=== PATIENT | male | born 1940 | race Caucasian/White ===

== ENCOUNTER 2016-08-31 12:24 | Inpatient (IN) | payer MEDICARE ==
[2016-08-31] MEDS ORDERED: SODIUM CHLORIDE 0.9% 1000ML 1,000 ML IVS PRN (12:43)
--- NOTE | 2016-08-31 13:32 | RAD ---
Study: Single Frontal View of the Chest. Indication:syncope, hypotension Comparison: None Impression: Heart size upper limits normal without failure. Atherosclerosis aorta. Patchy consolidation right midlung and right lung base concerning for pneumonia. Followup to resolution recommended. No pleural effusion pneumothorax. Osteopenia. If this is a new finding, DEXA scan recommended as well as evaluation for possible osteoporosis treatment. Electronically signed by: Beni Montaño MD 08/31/2016 13:30
[2016-08-31] MEDS: SODIUM CHLORIDE 0.9% (FLUSH) 10 ML SYG IV PRN (13:43)
[2016-08-31] MEDS ORDERED: CEFEPIME 2 GM in SODIUM CHL 0.9% 50ML MIN-BAG+ 50 ML IVPB ONE (13:43)
[2016-08-31] MEDS ORDERED: AZITHROMYCIN IV 500 MG in SODIUM CHLORIDE 0.9% 250ML 250 ML IVPB ONE (13:44)
[2016-08-31] MEDS ORDERED: VANCOMYCIN HCL INJ 1,000 MG, VANCOMYCIN HCL INJ 500 MG in SODIUM CHLORIDE 0.9% 250ML 25... IVPB ONE (13:44)
--- NOTE | 2016-08-31 14:03 | ED.PDOC ---
History of Present Illness - General Chief Complaint: Syncope/Near Syncope Stated Complaint: possible syncopal episode Time Seen by Provider: 08/31/16 12:35 Source: family, RN/MD, long term records Exam Limitations: clinical condition Additional Information: HPI AND ROS IS LIMITED DUE TO PTS MENTAL STATUS - History of Present Illness Initial Comments: PT SENT TO ED FROM [facility] DUE TO SYNCOPAL EPISODE. PT IS NORMALLY CONFUSED AND UNABLE TO AMBULATE DUE TO STROKE. 2 FAMILY MEMBERS AT BEDSIDE WHO STATE THAT PT HAS HAD A HOARSE VOICE AND COUGH RECENTLY AND HAS ALSO BEEN RUNNING ELEVATED BLOOD SUGARS. Timing/Prior Episodes: single episode today Precipitating Factors: unknown Loss of Consciousness: unsure Current Symptoms: back to normal Allergies/Adverse Reactions: Allergies NO KNOWN ALLERGY Allergy (Verified 02/17/16 04:14) Home Medications: Ambulatory Orders Aspirin [Aspirin Childrens] 81 mg PO DAILY 07/14/15 Lovastatin 40 mg PO BEDTIME 07/14/15 Metformin HCl 1,000 mg PO BIDFD 07/14/15 Ramipril 5 mg PO DAILY 07/14/15 Clopidogrel Bisulfate [Plavix] 75 mg PO DAILY 03/09/16 Insulin Lispro [Humalog] 0 unit SC TID PRN 03/09/16 Cefuroxime Axetil [Ceftin] 250 mg PO BID #12 tab 03/11/16 Review of Systems - Review of Systems Constitutional: Denies: chills, fever EENTM: Denies: nose congestion, throat pain Respiratory: States: see HPI, cough. Denies: short of breath Cardiology: States: no symptoms reported Gastrointestinal/Abdominal: States: no symptoms reported Genitourinary: States: no symptoms reported Musculoskeletal: States: no symptoms reported Skin: States: no symptoms reported Neurological: States: no symptoms reported Endocrine: States: no symptoms reported Hematologic/Lymphatic: States: no symptoms reported Past Medical History (General) - Patient Medical History Hx Seizures: No Hx Stroke: Yes - january Hx Cardiac Disorders: Yes Hx Congestive Heart Failure: No Hx Pacemaker: No Hx Hypertension: Yes Hx Diabetes: Yes Hx MRSA: No - Vaccination History Hx Influenza Vaccination: Yes - Social History Hx Tobacco Use: Yes Hx Alcohol Use: No Hx Substance Use: No Hx Substance Use Treatment: No Hx Depression: Yes Hx Physical Abuse: No Hx Emotional Abuse: No - Female History Patient : No Physical Exam - Physical Exam General Appearance: Comfortable, Frail, No apparent distress Eyes, Ears, Nose, Throat Exam: other - DRY MUCOUS MEMBRANES Neck: normal inspection Cardiovascular/Respiratory: regular rate, rhythm, no M/R/G, normal breath sounds , no respiratory distress - 94% ON RA, tachycardia Gastrointestinal/Abdominal: non tender, soft Extremity: normal inspection Mental Status: alert, other - CONFUSED, UNINTELIGIBLE SPEECH Motor/Sensory: weak motor strength RUE, weak motor strength RLE Skin Exam: normal color, warm/dry Progress - Progress Progress: 08/31/16 14:08 PT RESTING COMFORTABLY IN BED ON RE-EVAL. BP IMPROVED TO 130 SYSTOLIC AFTER INITIATION OF IV NS. LABS AND DIAGNOSTIC STUDIES DISCUSSED WITH FAMILY AT BEDSIDE. WILL REFER TO HOSPITALIST FOR ADMISSION. ANTIBIOTICS INITIATED FOR HEALTHCARE ASSOCIATED PNEUMONIA. - EKG/XRAY/CT EKG: Sinus, Tachy - @ 130BPM, NL INTERVALS, NL AXIS, NO OLD EKG FOR COMPARISON XRAY: chest Xray Comments: RML, RLL, INFILTRATE PER RAD CT Ordered: No Departure - Departure Clinical Impression: Hyperglycemia Pneumonia Qualifiers: Pneumonia type: due to unspecified organism Laterality: right Lung location: unspecified part of lung Qualifier Code: (J18.9) Pneumonia, unspecified organism Syncope Qualifiers: Syncope type: unspecified Qualifier Code: (R55) Syncope and collapse Hypotension Qualifiers: Hypotension type: unspecified hypotension type Qualifier Code: (I95.9) Hypotension, unspecified Time of Disposition: 14:13 - DISCUSSED CASE WITH DR. CASH WHO AGREES TO ADMIT Disposition: Discharge to Home or Self Care Condition: Fair Departure Forms: ED Discharge - Pt. Copy, Patient Portal Self Enrollment Home Medications: Ambulatory Orders Aspirin [Aspirin Childrens] 81 mg PO DAILY 07/14/15 Lovastatin 40 mg PO BEDTIME 07/14/15 Metformin HCl 1,000 mg PO BIDFD 07/14/15 Ramipril 5 mg PO DAILY 07/14/15 Clopidogrel Bisulfate [Plavix] 75 mg PO DAILY 03/09/16 Insulin Lispro [Humalog] 0 unit SC TID PRN 03/09/16 Cefuroxime Axetil [Ceftin] 250 mg PO BID #12 tab 03/11/16 Decision To Admit - Decistion To Admit Decision to Admit Reason: Admit from ER - HEALTHCARE ASSOCIATED PNEUMONIA, SYNCOPE, HYPOTENSION, HYPERGLYCEMIA Decision to Admit Date: 08/31/16 Decision to Admit Time: 14:18
--- NOTE | 2016-08-31 14:27 | HP ---
HISTORY OF PRESENT ILLNESS: This 76 year-old white male is admitted to the hospital via the Emergency Room because of being poorly responsive at [facility] where he is currently a resident. He has had significant disability over the last 5 months after an [place] episode with an acute left sided hemispheric ischemic stroke with worsening neurologic disabilities especially involving the right side as well as speech centers. He was last in our hospital in February of this past year. Since then he has been cared for at [facility]. Earlier today, he was found to be poorly responsive and nearly blacking out. In the Emergency Room, he had a blood pressure with systolic in the 90s and after fluid hydration was up to 130 and the patient appeared to be a little more alert. He has had a cough and his voice has been somewhat hoarse, and he is unable to carry out sentences. He speaks with profanities a lot and is able to answer most questions with a "Yes." At the [facility] he has had an elevated glucose as well. No complete loss of consciousness but the patient is probably suffering from a significant shock state and so is admitted to the hospital after being found to have right middle and right lower lobe infiltrates suggesting a pneumonia in his lungs. Pulse oximetry was decreased to 88% on room air at the [facility]. Sacral and heel ulcers also noted. Please refer to orders. PAST MEDICAL HISTORY: 1. Significant cerebrovascular accident episode in February of this past year with neurological evaluation and complete occlusion of his left carotid artery making intervention difficult. 2. History of hypertension. 3. Diabetes. 4. Two heart attacks. 5. Elevated cholesterol. PAST SURGICAL HISTORY: 1. Low back surgery. CURRENT MEDICATIONS: Please refer to nurses notes for a list of verified medications taken at the [facility]. ALLERGIES: NONE KNOWN. FAMILY HISTORY: Mother had lung cancer and diabetes. Father with laryngeal cancer and other family members with diabetes. SOCIAL HISTORY: He has been a chronic smoker for over 60 year at a pack or more per day and quit at the stroke in January and February of 2016. He is retired as an employee from the [employer]. REVIEW OF SYSTEMS: Essentially difficult to obtain because of the patient's inability to communicate. PHYSICAL EXAMINATION: VITAL SIGNS: Afebrile, pulse 67, blood pressure initially 91/60 up to 136/66 after a few hundred milliliters of normal saline infused. Pulse oximetry at the [facility] was 88%, it was 92% on room air in the Emergency Room. Weight 59 kilos. GENERAL: The patient is able to look around and is able to respond to questions , though unfortunately unable to fully answer in a coherent way with most of his answers being yes. Family was not present at the time of the initial admission and will be very helpful when they arrive in the morning to assist with ongoing history determination. HEENT: Question of a right hemianopsia after his recent stroke. NECK: Decreased pulse left carotid. CHEST: Lung sounds seem to be diminished with an occasional rhonchi, especially in the bases bilaterally more prominent on the right than the left. CARDIOVASCULAR: Heart tones somewhat distant. ABDOMEN: Generally soft with a prominent epigastric abdominal aortic bruit being noted. EXTREMITIES: Unable to lift either arm and unable to cooperate with full neurological evaluation suggesting significant disability at this time. The patient has not been able to ambulate and will have therapy evaluation to check on his rehab potential while here. LABORATORY: Potassium 3.9, CO2 is 26, BUN 38, creatinine 1.18, glucose 289, calcium 8.2. Liver enzymes normal. Albumin 2.3. White count 8,400 with 82% neutrophils, hemoglobin 9.1. INR pending. Urinalysis shows glycosuria, hematuria and rare bacteria. Serum ketones negative. Blood cultures pending. Chest x-ray is performed and shows patchy consolidation right mid and right lung base suggesting an inflammatory pneumonia process. Significant osteopenia noted. ASSESSMENT: 1. Significant fdc acquired pneumonia involving right middle and right lower lobes. 2. Hypotension requiring fluid resuscitation. 3. Near syncope probably secondary to the shock state showing some improvement. 4. History of diabetes mellitus on oral therapy. 5. History of significant cerebrovascular accident with disability in February 2016. 6. 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 7. Significant dehydration with fluid supplementation initiated. 8. Hypoxia with saturation 88% room air at the [facility]. 9. Chronic sacral and heel ulcers decubitus in nature with culture pending of the sacral ulcer. 10. Chronic anemia with microcytic hypochromic presentation. PLAN: Will continue with supportive care with gentle fluid hydration overnight. Will continue with antibiotic coverage with Cefepime to allow coverage as a fourth generation cephalosporin plus Azithromycin to also cover Pseudomonas. If the patient's condition fails to improve, then consider the addition of vancomycin, etc. The possibility of aspiration also to be considered where Clindamycin may be indicated with observation to continue. Will observe closely with sliding scale insulin as needed. Use thickened fluid with his diabetic diet. Acquire sputum culture. Condition is serious. Will inquire as to code status. Close followup is necessary and return to [facility] when stable. #[id number] MTDD
[2016-08-31] MEDS ORDERED: VANCOMYCIN HCL INJ 1,000 MG VIAL IVPB ONE ×2 (14:31→18:14)
[2016-08-31] MEDS ORDERED: VANCOMYCIN HCL INJ 500 MG VIAL ONE (14:31)
[2016-08-31] MEDS ORDERED: SODIUM CHLORIDE 0.9% 250ML 0 ML ONE (14:32)
[2016-08-31] MEDS ORDERED: SODIUM CHLORIDE 0.9% 250ML 250 ML ONE ×2 (14:32→18:13)
[2016-08-31] MEDS ORDERED: AZITHROMYCIN IV 500 MG VIAL IVPB ONE (14:32)
[2016-08-31] MEDS ORDERED: CEFEPIME 2 GM VIAL IVPB ONE ×2 (14:35→20:23)
[2016-08-31] MEDS ORDERED: SODIUM CHL 0.9% 50ML MIN-BAG+ 50 ML IVPB ONE ×2 (14:35→20:22)
[2016-08-31] MEDS ORDERED: SODIUM CHLORIDE 0.9% 10 ML VIAL INJ PRN (15:36)
[2016-08-31] MEDS ORDERED: VANCOMYCIN HCL INJ 1,000 MG in SODIUM CHLORIDE 0.9% 250ML 250 ML IVPB SCH (18:00)
[2016-08-31] MEDS ORDERED: SODIUM CHLORIDE 0.9% (FLUSH) 10 ML SYG IV PRN (19:04)
[2016-08-31] MEDS ORDERED: DEXTROSE 50% 25 GM/50 ML SYG IV PRN (19:13)
[2016-08-31] MEDS ORDERED: MAGNESIUM HYDROXIDE 30 ML UD PO PRN (19:13)
[2016-08-31] MEDS ORDERED: HYDROcodone 5MG/APAP 325MG 1 EA TAB PO PRN (19:13)
[2016-08-31] MEDS ORDERED: LEVALBUTEROL NEBS 1.25 MG/3 ML VIAL INH PRN (19:13)
[2016-08-31] MEDS ORDERED: GLUCAGON INJ 1 MG VIAL SUBCU PRN (19:13)
[2016-08-31] MEDS ORDERED: IV SET AND CAP CHANGE INJ INJ SCH (19:30)
[2016-08-31] MEDS ORDERED: traMADol HCL 50 MG TAB PO PRN (19:31)
[2016-08-31] MEDS ORDERED: KCL 20 MEQ/NS 1,000 ML IVS PRN (19:36)
[2016-08-31] MEDS: IPRATROPIUM/ALBUTEROL 3 ML VIAL INH SCH (20:05)
[2016-08-31] MEDS: ENOXAPARIN SODIUM 30 MG/0.3 ML SYG SUBCU SCH (20:30)
[2016-08-31] MEDS ORDERED: MIRTAZAPINE 15 MG TAB PO SCH (21:00)
[2016-08-31] MEDS ORDERED: QUEtiapine FUMARATE 25 MG TAB PO SCH (21:00)
[2016-08-31] MEDS: INSULIN LISPRO 100 UNITS/ML PEN SUBCU SCH (21:28)
[2016-09-01] MEDS ORDERED: CEFEPIME 2 GM in SODIUM CHL 0.9% 50ML MIN-BAG+ 50 ML IVPB SCH (02:00)
[2016-09-01] MEDS: SODIUM CHLORIDE 0.9% (FLUSH) 10 ML SYG IV PRN (02:14)
[2016-09-01] MEDS ORDERED: OMEPRAZOLE CAP 20 MG CAP PO SCH (06:30)
--- NOTE | 2016-09-01 06:44 | RAD ---
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 The left lung remains largely clear. The heart is normal in size. The mediastinal contours are normal in appearance. The thoracic spine is age appropriate. The shoulders are unremarkable. Limited evaluation of the upper abdomen demonstrates no gross abnormalities. Impression: Increasing right lower lobe pneumonia. Electronically signed by: Dale Castellano MD 09/01/2016 6:43 AM LOADER OPERATOR SUPERVISOR
[2016-09-01] MEDS ORDERED: SODIUM CHLORIDE 0.9% 500ML 500 ML IVS ONE ×2 (06:48→10:09)
[2016-09-01] MEDS ORDERED: RAMIPRIL 2.5 MG CAP ONE (07:12)
[2016-09-01] MEDS ORDERED: AZITHROMYCIN 250 MG TAB PO ONE (07:12)
[2016-09-01] MEDS ORDERED: SODIUM CHL 0.9% 50ML MIN-BAG+ 0 ML IVPB ONE (07:12)
[2016-09-01] MEDS ORDERED: MULTIPLE VITAMINS W/ MINERALS 1 EA TAB ONE (07:12)
[2016-09-01] MEDS ORDERED: ASPIRIN EC 81 MG TAB PO ONE (07:13)
[2016-09-01] MEDS ORDERED: CEFEPIME 2 GM VIAL IVPB ONE (07:13)
[2016-09-01] MEDS ORDERED: metFORMIN HCL 500 MG TAB PO SCH (07:30)
[2016-09-01] MEDS ORDERED: NON-FORMULARY MEDICATION 1 EA MIS (Metformin Hcl [Metformin Hcl] 1,000 MG) PO SCH (07:30)
[2016-09-01] MEDS: INSULIN LISPRO 100 UNITS/ML PEN SUBCU SCH ×2 (07:48→12:28)
[2016-09-01] MEDS: IPRATROPIUM/ALBUTEROL 3 ML VIAL INH SCH (08:30)
[2016-09-01] MEDS ORDERED: MULTIPLE VITAMINS W/ MINERALS 1 EA TAB PO SCH (09:00)
[2016-09-01] MEDS ORDERED: RAMIPRIL 2.5 MG CAP PO SCH (09:00)
[2016-09-01] MEDS ORDERED: ASPIRIN (CHEWABLE) 81 MG TAB PO SCH (09:00)
[2016-09-01] MEDS ORDERED: CLINDAMYCIN IV 600MG 600 MG in PREMIX BAG 1 BAG IVPB SCH (09:30)
[2016-09-01] MEDS ORDERED: VANCOMYCIN PER PHARMACY INJ SCH (09:30)
[2016-09-01] MEDS ORDERED: CLINDAMYCIN IV 600MG 0 ML IVPB ONE (10:04)
[2016-09-01] MEDS ORDERED: SODIUM CHLORIDE 0.9% 1000ML 1,000 ML IVS ONE (10:05)
[2016-09-01] MEDS ORDERED: SODIUM CHLORIDE 0.45% 1000ML 1,000 ML IVS ONE (10:05)
[2016-09-01] MEDS ORDERED: SODIUM CHLORIDE 0.9% 1000ML 1,000 ML ONE (10:06)
[2016-09-01] MEDS ORDERED: SODIUM CHLORIDE 0.9% 500ML 500 ML ONE (10:08)
[2016-09-01] MEDS ORDERED: DOPamine PREMIX 250 ML IV ONE (10:33)
[2016-09-01] MEDS ORDERED: NOREPINEPHRINE BITARTRATE 4 MG/4 ML VIAL IVPB ONE (10:38)
[2016-09-01] MEDS ORDERED: DEXTROSE 5% 250ML 250 ML ONE (10:39)
[2016-09-01] MEDS ORDERED: NOREPINEPHRINE BITARTRATE 4 MG in DEXTROSE 5% 250ML 250 ML IVPB SCH (11:00)
[2016-09-01 11:25] VITALS: BP 94/61
[2016-09-01] MEDS: ENOXAPARIN SODIUM 30 MG/0.3 ML SYG SUBCU SCH (12:26)
[2016-09-01] MEDS ORDERED: SODIUM CHLORIDE 0.9% 500ML 500 ML IVS SCH (12:30)
[2016-09-01 12:41] VITALS: TEMP 98.4; O2SAT 96
[2016-09-01] MEDS ORDERED: AZITHROMYCIN 250 MG TAB PO SCH (14:00)
[2016-09-01] MEDS ORDERED: VANCOMYCIN HCL INJ 1,000 MG in SODIUM CHLORIDE 0.9% 250ML 250 ML IVPB SCH (18:00)
--- NOTE | 2016-09-01 19:15 | DS ---
SUPERVISING PHYSICIAN: Mack Aguirre M.D. DISCHARGE DIAGNOSIS: 1. Hypovolemic shock with acute drop in hemoglobin and hematocrit of unknown etiology. 2. Significant jail acquired pneumonia involving right middle and lower lobes with the patient having been started on Cefepime, vancomycin, Azithromycin and Clindamycin. 3. Near syncope likely secondary to above shock state showing acute worsening state requiring transfusion of blood and transfer to a higher level of care for persistent hypotension on Levophed. 4. History of diabetes mellitus on oral therapy. 5. History of significant cerebrovascular accident with disability in 2016. 6. 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 7. Significant dehydration requiring fluid supplementation in the presence of hypovolemic shock. 8. Hypoxia with saturation to 88% on room air at the jail likely secondary to severe anemia and underlying right middle and lower lobe pneumonia. 9. Chronic sacral and heel ulcers decubitus with cultures pending of the sacral ulcer. 10. Chronic anemia with microcytic hypochromic presentation showing acute worsening requiring emergent transfusion of blood and transferred to a higher level of care. 11. Elevated troponin with no evidence of T wave changes or T wave elevations. No evidence of acute changes on EKG. HISTORY OF PRESENT ILLNESS: Mr. Worthy is a 76 year-old male patient that presented to the Emergency Department via ambulance from [facility] where he was residing after he was noted to be poorly responsive. He has had significant disability over the last 5 months after an [place] episode with an acute left sided hemispheric ischemic stroke with worsening neurologic disabilities especially involving the right side as well as speech centers. He was last admitted to [facility] in February of this past year. Since his release he has been cared for at [facility]. Earlier on date of admission, he was found to be poorly responsive and nearly blacking out. In the Emergency Room, he had a blood pressure with systolic in the 90s and after fluid hydration was up to 130 and the patient appeared to be a little more alert. He has had a cough and his voice was somewhat hoarse, and he is unable to carry out sentences. He speaks with profanities a lot and is able to answer most questions with a "Yes." At the jail he has had an elevated glucose but no complete loss of consciousness. After the patient is suffered significant shock state he was admitted to the hospital and was found to have a right middle and right lower lobe infiltrate suggestive of pneumonia. Pulse oximetry was decreased to 88% on room air at the jail. Also noted was sacral and heel ulcers. On the morning of discharge, the patient had a significant decrease in his physiological state becoming hypotensive with a noted anemia on laboratory studies with a hemoglobin of 6.7 and 20.9 at 5:00 and then becoming hypotensive with blood pressure of 68/42. The patient was started on Betafed along with saline boluses and packed RBCs for fluid resuscitation. The patient's blood pressure did stabilize at which time he was transferred to [facility] for a higher level of care with blood pressure 94/61 satting 96% on nasal cannula with heart rate 101. The patient was critical with condition being serious but stable at time of transfer. LABORATORY: Initial white count was 8.4, at time of discharge was 6.7. Initial hemoglobin was 9.1, at discharge was 6.5. Hematocrit 28.2 initially, at time of discharge was 20.2. RBC indices indicated a microcytic hypochromic presentation with a platelet count of 223,000. Differential initially showed a left shift, however at time of discharge had resolved. Chemistries on admission showed normal electrolytes with potassium 3.9, BUN 38, creatinine 1.18. Glucoses were elevated anywhere from 227 to 345. Initial serum osmolality was 297, after rehydration showed 290. Calcium was 8.2, at discharge 7.6. Albumin 2.3. He did have an elevation in his troponin of 0.10. Lactic acid at discharge was 2.1. Urinalysis showed 100 glucose, trace of blood. Negative for leukocyte esterase. Negative for nitrites. Microscopic revealed 3 to 5 RBCs, 0 to 1 WBCs, 1 to 3 epithelials, 3+ sediment with rare bacteria. Toxicology screen showed negative for ketones. MICROBIOLOGY: Wound culture of the sacrum is pending at time of discharge. Blood cultures times 2 were negative at 24 hours. Cross matched O positive blood. Antibody screen was negative. RADIOLOGY: Chest x-ray upon admission from the Emergency Department initially showed per radiology interpretation patchy consultation right middle and right lung base concerning for pneumonia. No pleural effusions or pneumothoraxes were noted. Repeat chest x-ray on morning of transfer showed increasing right lower lobe pneumonia. HOSPITAL COURSE: Mr. Worthy was admitted as noted in History of Present Illness for above syncopal episodes and anemia, hypotensive crisis with right lower lobe pneumonia. He was initially given fluid resuscitation in the Emergency Department and admitted to the floor, and started on Cefepime and Azithromycin and vancomycin. On the morning of discharge, the patient had shown acute deterioration physiologically becoming more hypotensive with initial blood pressure of 68/42 requiring fluid resuscitation with 2 normal saline boluses of 500 mL and packed red blood cells along with Levophed at 2 mcg per minute resulting in hemodynamic stabilization prior to discharge with a blood pressure at discharge of 94/61, respirations were 20 to 32 with O2 sat 96 % on room air. He was afebrile. He was transferred to the [facility] via ground. At time of discharge, condition serious but stable. PLAN: The patient is transferred to a higher level of care with concerns for acute blood loss with hypotension secondary to hypovolemic shock requiring transfusion of packed red blood cells as well as have the patient started on pressors with Levophed. Acceptance was secured at [facility] by Dr. Alvarez and the patient was transferred by ground ambulance as there was no air ambulance available within the time frame to ensure that the patient arrived at [facility] in a timely manner. At time of transfer, he was alert but critical in serious condition but stable with blood transfusing and Levophed running at 2 mcg per minute. Transfer documents included the MOT, History and Physical, imaging studies as well as a DVD with the current imaging studies along with all laboratory studies. #[id number] [facility]
--- NOTE | 2016-09-24 23:51 | RAD ---
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 The left lung remains largely clear. The heart is normal in size. The mediastinal contours are normal in appearance. The thoracic spine is age appropriate. The shoulders are unremarkable. Limited evaluation of the upper abdomen demonstrates no gross abnormalities. Impression: Increasing right lower lobe pneumonia. Electronically signed by: Dale Castellano MD 09/01/2016 6:43 AM BERRY PICKER
== END 2016-09-01 11:20 | disposition short-term general hospital (02) | DRG 871 ==
LOC: ER 12:24 → MS 14:26
PROVIDERS: ADMIT Emergency Medicine; ATTEND Nurse Practitioner Family
DX: R57.1 Hypovolemic shock (principal); J18.9 Pneumonia, unspecified organism; I10 Essential (primary) hypertension; E11.9 Type 2 diabetes mellitus without complications; I25.2 Old myocardial infarction; E78.00 Pure hypercholesterolemia, unspecified; I71.4 Abdominal aortic aneurysm, without rupture; R09.02 Hypoxemia; L89.159 Pressure ulcer of sacral region, unspecified stage; L89.609 Pressure ulcer of unspecified heel, unspecified stage; D64.9 Anemia, unspecified; Y95 Nosocomial condition; Z87.891 Personal history of nicotine dependence; Z86.73 Personal history of transient ischemic attack (TIA), and cerebral infarction without residual deficits; Z79.82 Long term (current) use of aspirin; Z79.84 Long term (current) use of oral hypoglycemic drugs; Z79.4 Long term (current) use of insulin; Z79.899 Other long term (current) drug therapy